=== PATIENT | male | born 1990 | race Caucasian/White ===

== ENCOUNTER 2019-07-10 15:40 | Outpatient (CLI) | payer OTHER, SELFPAY ==
[2019-07-10 15:55] LABS: Basophils Percent Auto 0.2 % (0.2-1.2); Eosinophils Absolute Auto 0.1 K/mm3 (0-0.3); Eosinophils Percent Auto 0.6 % (0-4.4); Hematocrit 50.3 % (42.0-52.0); Hemoglobin 16.9 g/dL (14.0-18.0); Immature Granulocyte Absolute 0.05 K/mm3 (0.00-0.031); Immature Granulocyte Percent A 0.3 % (0-0.5); Lymphocytes Absolute Auto 2.12 K/mm3 (0.9-3.2); Lymphocytes Percent Auto 12.9 % (18.3-44.2); Mean Corpuscular HGB Conc 33.6 g/dl (32-36); Mean Corpuscular Hemoglobin 32.1 pg (26-34); Mean Corpuscular Volume 95.6 fl (80-100); Mean Platelet Volume 9.2 fl (7.4-10.4); Monocytes Absolute Auto 1.2 K/mm3 (0.1-0.6); Monocytes Percent Auto 7.5 % (2.6-8.5); Neutrophils Absolute Auto 12.9 K/mm3 (1.3-6.7); Neutrophils Percent Auto 78.5 % (45.5-73.1); Platelet Count Result 536 k/mm3 (150-375); Red Blood Count 5.26 M/mm3 (4.6-6.20); Red Cell Distribution Width 13.3 % (11.5-14.5); White Blood Count 16.5 K/mm3 (4.5-10.0)
[2019-07-10 16:49] LABS: Iron 113 ug/dL (49-181)
[2019-07-10 16:51] LABS: Alanine Aminotransferase 29 U/L (4-50); Albumin Level 4.8 g/dL (3.5-5.1); Alkaline Phosphatase 86 U/L (38-126); Aspartate Amino Transferase 38 U/L (17-59); Bilirubin,Total 0.4 mg/dL (0.2-1.3); Blood Urea Nitrogen 14 mg/dL (9-20); Calcium 9.9 mg/dL (8.4-10.2); Carbon Dioxide 26 mmol/L (22-30); Chloride 97 mmol/L (98-107); Estimated Glomerular Filt Rate > 60; Glucose 95 mg/dL (75-110); Potassium 4.1 mmol/L (3.4-5.0); Sodium 142 mmol/L (137-145)
[2019-07-10 17:01] LABS: Percent Iron Saturation 36 % (20-50)
== END 2019-07-10 15:41 | disposition home or self-care (01) ==
LOC: ANHLAB 15:45
PROVIDERS: PCP Pediatrics; Visit Provider Internal Medicine Hematology & Oncology
DX: E83.110 Hereditary hemochromatosis (principal)
CPT/HCPCS: 36415; 80053; 82728; 83540; 83550; 85025

== ENCOUNTER 2019-11-14 14:22 | Outpatient (CLI) | payer OTHER, SELFPAY ==
[2019-11-14 14:34] LABS: Basophils Absolute Auto 0.02 K/mm3 (0.00-0.10); Basophils Percent Auto 0.2 % (0.0-1.0); Eosinophils Absolute Auto 0.24 K/mm3 (0.02-0.50); Eosinophils Percent Auto 2.6 % (1.0-6.0); Hematocrit 44.5 % (40.0-54.0); Hemoglobin 15.4 g/dL (14.0-18.0); Immature Granulocyte Absolute 0.03 K/mm3 (0.00-0.00); Immature Granulocyte Percent A 0.3 % (0.0-0.0); Lymphocytes Absolute Auto 1.99 K/mm3 (1.10-4.50); Lymphocytes Percent Auto 21.6 % (18.0-42.0); Mean Corpuscular HGB Conc 34.6 g/dL (32.0-36.0); Mean Corpuscular Hemoglobin 32.8 pg (27.0-31.0); Mean Corpuscular Volume 94.9 fL (78.0-102.0); Mean Platelet Volume 10.2 fl (8.7-11.0); Monocytes Absolute Auto 1.14 K/mm3 (0.10-0.90); Monocytes Percent Auto 12.4 % (2.0-11.0); Neutrophils Absolute Auto 5.8 K/mm3 (1.7-7.2); Neutrophils Percent Auto 62.9 % (50.0-70.0); Platelet Count Result 285 K/mm3 (150-420); Red Blood Count 4.69 M/mm3 (4.70-6.10); Red Cell Distribution Width 13.7 % (11.6-14.4); White Blood Count 9.2 K/mm3 (4.8-10.8)
[2019-11-14 15:27] LABS: Ferritin 342 ng/mL (26-388); Iron 163 ug/dL (65-175); Percent Iron Saturation 55 % (12-57)
== END 2019-11-14 14:23 | disposition home or self-care (01) ==
LOC: CHSLAB 14:26
PROVIDERS: PCP Family Medicine; Visit Provider Internal Medicine Hematology & Oncology
DX: E83.110 Hereditary hemochromatosis (principal)
CPT/HCPCS: 36415; 82728; 83540; 83550; 85025

== ENCOUNTER 2020-02-14 14:59 | Outpatient (CLI) | payer OTHER, SELFPAY ==
[2020-02-14 15:11] LABS: Basophils Absolute Auto 0.04 K/mm3 (0.00-0.10); Basophils Percent Auto 0.5 % (0.0-1.0); Eosinophils Percent Auto 2.3 % (1.0-6.0); Hematocrit 40.3 % (40.0-54.0); Hemoglobin 13.9 g/dL (14.0-18.0); Immature Granulocyte Absolute 0.04 K/mm3 (0.00-0.00); Immature Granulocyte Percent A 0.5 % (0.0-0.0); Immature Platelet Fraction Pct 1.3 % (1.0-7.0); Lymphocytes Absolute Auto 2.16 K/mm3 (1.10-4.50); Lymphocytes Percent Auto 24.7 % (18.0-42.0); Mean Corpuscular HGB Conc 34.5 g/dL (32.0-36.0); Mean Corpuscular Hemoglobin 32.6 pg (27.0-31.0); Mean Corpuscular Volume 94.4 fL (78.0-102.0); Monocytes Absolute Auto 1.29 K/mm3 (0.10-0.90); Monocytes Percent Auto 14.8 % (2.0-11.0); Neutrophils Percent Auto 57.2 % (50.0-70.0); Platelet Count Result 589 K/mm3 (150-420); Red Blood Count 4.27 M/mm3 (4.70-6.10); Red Cell Distribution Width 12.9 % (11.6-14.4); White Blood Count 8.7 K/mm3 (4.8-10.8)
[2020-02-14 16:02] LABS: Alanine Aminotransferase 30 U/L (16-63); Albumin Level 3.4 g/dL (3.4-5.0); Alkaline Phosphatase 62 U/L (46-116); Anion Gap 10 mmol/L (8-16); Aspartate Amino Transferase 18 U/L (15-37); Bilirubin,Total 0.1 mg/dL (0.00-1.00); Blood Urea Nitrogen 11 mg/dL (7-18); Calcium 9.2 mg/dL (8.5-10.1); Carbon Dioxide 29 mmol/L (21-32); Chloride 104 mmol/L (98-108); Estimated Glomerular Filt Rate > 60; Ferritin 475 ng/mL (26-388); Glucose 140 mg/dL (70-99); Iron 164 ug/dL (65-175); Osmolality Calculated 297 mOsm/kg (285-295); Percent Iron Saturation 64 % (12-57); Potassium 3.3 mmol/L (3.5-5.1); Sodium 143 mmol/L (136-145); Total Protein 6.7 g/dL (6.4-8.2)
== END 2020-02-14 15:00 | disposition home or self-care (01) ==
LOC: CHSLAB 15:02
PROVIDERS: PCP Family Medicine; Visit Provider Internal Medicine Hematology & Oncology
DX: E83.110 Hereditary hemochromatosis (principal)
CPT/HCPCS: 36415; 80053; 82728; 83540; 83550; 85025; 85055

== ENCOUNTER 2020-03-06 14:28 | Outpatient (CLI) | payer OTHER, SELFPAY ==
[2020-03-06 14:42] LABS: Basophils Absolute Auto 0.01 K/mm3 (0.00-0.10); Basophils Percent Auto 0.1 % (0.0-1.0); Eosinophils Absolute Auto 0.05 K/mm3 (0.02-0.50); Eosinophils Percent Auto 0.6 % (1.0-6.0); Hematocrit 46.9 % (40.0-54.0); Hemoglobin 15.8 g/dL (14.0-18.0); Immature Granulocyte Absolute 0.02 K/mm3 (0.00-0.00); Immature Granulocyte Percent A 0.2 % (0.0-0.0); Immature Platelet Fraction Pct 6.6 % (1.0-7.0); Lymphocytes Absolute Auto 1.65 K/mm3 (1.10-4.50); Lymphocytes Percent Auto 20.2 % (18.0-42.0); Mean Corpuscular HGB Conc 33.7 g/dL (32.0-36.0); Mean Corpuscular Hemoglobin 32.8 pg (27.0-31.0); Mean Corpuscular Volume 97.5 fL (78.0-102.0); Mean Platelet Volume 10.8 fl (8.7-11.0); Monocytes Absolute Auto 1.09 K/mm3 (0.10-0.90); Monocytes Percent Auto 13.3 % (2.0-11.0); Neutrophils Absolute Auto 5.4 K/mm3 (1.7-7.2); Neutrophils Percent Auto 65.6 % (50.0-70.0); Platelet Count Result 148 K/mm3 (150-420); Red Blood Count 4.81 M/mm3 (4.70-6.10); Red Cell Distribution Width 14.2 % (11.6-14.4); White Blood Count 8.2 K/mm3 (4.8-10.8)
[2020-03-06 15:42] LABS: Alanine Aminotransferase 36 U/L (16-63); Albumin Level 4.4 g/dL (3.4-5.0); Alkaline Phosphatase 87 U/L (46-116); Anion Gap 12 mmol/L (8-16); Aspartate Amino Transferase 30 U/L (15-37); Bilirubin,Total 1.1 mg/dL (0.00-1.00); Blood Urea Nitrogen 32 mg/dL (7-18); Calcium 9.5 mg/dL (8.5-10.1); Carbon Dioxide 30 mmol/L (21-32); Chloride 96 mmol/L (98-108); Estimated Glomerular Filt Rate > 60; Glucose 153 mg/dL (70-99); Osmolality Calculated 295 mOsm/kg (285-295); Potassium 3.1 mmol/L (3.5-5.1); Sodium 138 mmol/L (136-145); Total Protein 8.2 g/dL (6.4-8.2)
== END 2020-03-06 14:29 | disposition home or self-care (01) ==
LOC: CHSLAB 14:31
PROVIDERS: PCP Family Medicine; Visit Provider Nurse Practitioner Adult Health
DX: E83.110 Hereditary hemochromatosis (principal); E87.6 Hypokalemia
CPT/HCPCS: 36415; 80048; 80053; 85025; 85055

== ENCOUNTER 2020-03-26 14:40 | Outpatient (CLI) | payer OTHER, SELFPAY ==
[2020-03-26 14:51] LABS: Hematocrit 44.1 % (40.0-54.0); Hemoglobin 14.9 g/dL (14.0-18.0); Mean Corpuscular HGB Conc 33.8 g/dL (32.0-36.0); Mean Corpuscular Hemoglobin 33.3 pg (27.0-31.0); Mean Corpuscular Volume 98.7 fL (78.0-102.0); Mean Platelet Volume 9.1 fl (8.7-11.0); Platelet Count Result 433 K/mm3 (150-420); Red Blood Count 4.47 M/mm3 (4.70-6.10); Red Cell Distribution Width 14.6 % (11.6-14.4); White Blood Count 8.2 K/mm3 (4.8-10.8)
[2020-03-26 15:26] LABS: Alanine Aminotransferase 27 U/L (16-63); Alkaline Phosphatase 65 U/L (46-116); Anion Gap 9 mmol/L (8-16); Aspartate Amino Transferase 21 U/L (15-37); Bilirubin,Total 0.2 mg/dL (0.00-1.00); Blood Urea Nitrogen 9 mg/dL (7-18); Calcium 9.2 mg/dL (8.5-10.1); Carbon Dioxide 28 mmol/L (21-32); Chloride 104 mmol/L (98-108); Estimated Glomerular Filt Rate > 60; Glucose 117 mg/dL (70-99); Osmolality Calculated 291 mOsm/kg (285-295); Potassium 3.7 mmol/L (3.5-5.1); Sodium 141 mmol/L (136-145); Total Protein 7.7 g/dL (6.4-8.2)
== END 2020-03-26 14:41 | disposition home or self-care (01) ==
LOC: CHSLAB 14:42
PROVIDERS: PCP Family Medicine; Visit Provider Internal Medicine Hematology & Oncology
DX: E83.110 Hereditary hemochromatosis (principal)
CPT/HCPCS: 36415; 80053; 85027

== ENCOUNTER 2020-06-19 15:10 | Outpatient (CLI) | payer OTHER, SELFPAY ==
[2020-06-19 15:20] LABS: Basophils Absolute Auto 0.03 K/mm3 (0.00-0.10); Basophils Percent Auto 0.3 % (0.0-1.0); Hematocrit 46.7 % (40.0-54.0); Hemoglobin 16.2 g/dL (14.0-18.0); Immature Granulocyte Absolute 0.02 K/mm3 (0.00-0.00); Immature Granulocyte Percent A 0.2 % (0.0-0.0); Lymphocytes Absolute Auto 2.17 K/mm3 (1.10-4.50); Lymphocytes Percent Auto 21.9 % (18.0-42.0); Mean Corpuscular HGB Conc 34.7 g/dL (32.0-36.0); Mean Corpuscular Hemoglobin 33.2 pg (27.0-31.0); Mean Corpuscular Volume 95.7 fL (78.0-102.0); Mean Platelet Volume 9.5 fl (8.7-11.0); Monocytes Absolute Auto 1.11 K/mm3 (0.10-0.90); Monocytes Percent Auto 11.2 % (2.0-11.0); Neutrophils Absolute Auto 6.4 K/mm3 (1.7-7.2); Neutrophils Percent Auto 64.4 % (50.0-70.0); Platelet Count Result 270 K/mm3 (150-420); Red Blood Count 4.88 M/mm3 (4.70-6.10); Red Cell Distribution Width 12.6 % (11.6-14.4); White Blood Count 9.9 K/mm3 (4.8-10.8)
[2020-06-19 16:13] LABS: Alanine Aminotransferase 32 U/L (16-63); Albumin Level 4.4 g/dL (3.4-5.0); Alkaline Phosphatase 80 U/L (46-116); Anion Gap 12 mmol/L (8-16); Aspartate Amino Transferase 30 U/L (15-37); Bilirubin,Total 0.8 mg/dL (0.00-1.00); Blood Urea Nitrogen 17 mg/dL (7-18); Calcium 9.4 mg/dL (8.5-10.1); Carbon Dioxide 31 mmol/L (21-32); Chloride 96 mmol/L (98-108); Estimated Glomerular Filt Rate > 60; Ferritin 550 ng/mL (26-388); Glucose 103 mg/dL (70-99); Iron 114 ug/dL (65-175); Osmolality Calculated 289 mOsm/kg (285-295); Percent Iron Saturation 34 % (12-57); Potassium 3.5 mmol/L (3.5-5.1); Sodium 139 mmol/L (136-145); Total Protein 7.9 g/dL (6.4-8.2)
== END 2020-06-19 15:11 | disposition home or self-care (01) ==
LOC: CHSLAB 15:12
PROVIDERS: PCP Physician Assistant; Visit Provider Nurse Practitioner Adult Health
DX: E83.110 Hereditary hemochromatosis (principal)
CPT/HCPCS: 36415; 80053; 82728; 83540; 83550; 85025

== ENCOUNTER 2020-07-30 14:50 | Outpatient (CLI) | payer OTHER, SELFPAY ==
[2020-07-30 15:02] LABS: Basophils Absolute Auto 0.01 K/mm3 (0.00-0.10); Basophils Percent Auto 0.1 % (0.0-1.0); Eosinophils Absolute Auto 0.21 K/mm3 (0.02-0.50); Eosinophils Percent Auto 2.1 % (1.0-6.0); Hemoglobin 15.4 g/dL (14.0-18.0); Immature Granulocyte Absolute 0.04 K/mm3 (0.00-0.00); Immature Granulocyte Percent A 0.4 % (0.0-0.0); Lymphocytes Absolute Auto 2.45 K/mm3 (1.10-4.50); Lymphocytes Percent Auto 24.5 % (18.0-42.0); Mean Corpuscular HGB Conc 34.2 g/dL (32.0-36.0); Mean Corpuscular Hemoglobin 32.4 pg (27.0-31.0); Mean Corpuscular Volume 94.7 fL (78.0-102.0); Mean Platelet Volume 9.7 fl (8.7-11.0); Monocytes Absolute Auto 1.05 K/mm3 (0.10-0.90); Monocytes Percent Auto 10.5 % (2.0-11.0); Neutrophils Absolute Auto 6.3 K/mm3 (1.7-7.2); Neutrophils Percent Auto 62.4 % (50.0-70.0); Platelet Count Result 311 K/mm3 (150-420); Red Blood Count 4.75 M/mm3 (4.70-6.10); Red Cell Distribution Width 13.2 % (11.6-14.4)
[2020-07-30 16:11] LABS: Alanine Aminotransferase 52 U/L (16-63); Albumin Level 4.1 g/dL (3.4-5.0); Alkaline Phosphatase 64 U/L (46-116); Anion Gap 10 mmol/L (8-16); Aspartate Amino Transferase 25 U/L (15-37); Blood Urea Nitrogen 19 mg/dL (7-18); Calcium 9.3 mg/dL (8.5-10.1); Carbon Dioxide 29 mmol/L (21-32); Chloride 99 mmol/L (98-108); Estimated Glomerular Filt Rate > 60; Ferritin 471 ng/mL (26-388); Glucose 102 mg/dL (70-99); Iron 173 ug/dL (65-175); Osmolality Calculated 288 mOsm/kg (285-295); Percent Iron Saturation 64 % (12-57); Potassium 3.6 mmol/L (3.5-5.1); Sodium 138 mmol/L (136-145); Total Protein 7.4 g/dL (6.4-8.2)
== END 2020-07-30 14:51 | disposition home or self-care (01) ==
LOC: CHSLAB 14:53
PROVIDERS: PCP Physician Assistant; Visit Provider Internal Medicine Hematology & Oncology
DX: E83.110 Hereditary hemochromatosis (principal)
CPT/HCPCS: 36415; 80053; 82728; 83540; 83550; 85025

== ENCOUNTER 2020-08-29 14:36 | Outpatient (CLI) | payer OTHER, SELFPAY ==
[2020-08-29 14:47] LABS: Basophils Absolute Auto 0.03 K/mm3 (0.00-0.10); Basophils Percent Auto 0.4 % (0.0-1.0); Eosinophils Absolute Auto 0.13 K/mm3 (0.02-0.50); Eosinophils Percent Auto 1.7 % (1.0-6.0); Hematocrit 38.1 % (40.0-54.0); Hemoglobin 13.1 g/dL (14.0-18.0); Immature Granulocyte Absolute 0.03 K/mm3 (0.00-0.00); Immature Granulocyte Percent A 0.4 % (0.0-0.0); Immature Platelet Fraction Pct 1.2 % (1.0-7.0); Lymphocytes Absolute Auto 2.72 K/mm3 (1.10-4.50); Lymphocytes Percent Auto 36.1 % (18.0-42.0); Mean Corpuscular HGB Conc 34.4 g/dL (32.0-36.0); Mean Corpuscular Hemoglobin 32.4 pg (27.0-31.0); Mean Corpuscular Volume 94.3 fL (78.0-102.0); Mean Platelet Volume 8.8 fl (8.7-11.0); Monocytes Absolute Auto 1.01 K/mm3 (0.10-0.90); Monocytes Percent Auto 13.4 % (2.0-11.0); Neutrophils Absolute Auto 3.6 K/mm3 (1.7-7.2); Platelet Count Result 589 K/mm3 (150-420); Red Blood Count 4.04 M/mm3 (4.70-6.10); Red Cell Distribution Width 13.9 % (11.6-14.4); White Blood Count 7.5 K/mm3 (4.8-10.8)
[2020-08-29 16:23] LABS: Alanine Aminotransferase 25 U/L (16-63); Albumin Level 3.2 g/dL (3.4-5.0); Alkaline Phosphatase 56 U/L (46-116); Anion Gap 9 mmol/L (8-16); Aspartate Amino Transferase 20 U/L (15-37); Bilirubin,Total 0.1 mg/dL (0.00-1.00); Blood Urea Nitrogen 8 mg/dL (7-18); Calcium 8.3 mg/dL (8.5-10.1); Carbon Dioxide 32 mmol/L (21-32); Chloride 104 mmol/L (98-108); Estimated Glomerular Filt Rate > 60; Glucose 106 mg/dL (70-99); Osmolality Calculated 298 mOsm/kg (285-295); Potassium 3.4 mmol/L (3.5-5.1); Sodium 145 mmol/L (136-145); Total Protein 6.4 g/dL (6.4-8.2)
== END 2020-08-29 14:37 | disposition home or self-care (01) ==
LOC: CHSLAB 14:37
PROVIDERS: PCP Physician Assistant; Visit Provider Physician Assistant
DX: R11.2 Nausea with vomiting, unspecified (principal)
CPT/HCPCS: 36415; 80053; 85025; 85055

== ENCOUNTER 2020-09-07 10:00 | Outpatient (CLI) | payer OTHER, SELFPAY | END 2020-09-07 10:01 | disposition home or self-care (01) | LOC: CHSCOVIDVC 10:01 | PROVIDERS: PCP Physician Assistant | DX: Z23 Encounter for immunization (principal) | CPT/HCPCS: 0011A; 91301 ==

== ENCOUNTER 2020-10-05 10:00 | Outpatient (CLI) | payer OTHER, SELFPAY | END 2020-10-05 10:01 | disposition home or self-care (01) | LOC: CHSCOVIDVC 10:00 | PROVIDERS: PCP Physician Assistant | DX: Z23 Encounter for immunization (principal) | CPT/HCPCS: 0012A; 91301 ==

== ENCOUNTER 2020-12-05 12:49 | Outpatient (CLI) | payer OTHER, SELFPAY ==
--- NOTE | ~2020-12-05 | CT_ITS ---
EXAMINATION: CT sinus wo con DATE: 12/05/2020 13:11 INDICATION: Chronic sinusitis TECHNIQUE: Computed tomography (CT) of the paranasal sinuses was performed without intravenous contra st. The dose-length product was 304.88 mGy-cm. Automated exposure control and iterative reconstructio n technique were employed. He COMPARISON: None FINDINGS: There is mucosal thickening of the ethmoid, maxillary sinuses. Mastoids are pneumatized. No air-fluid levels. Leftward nasal septal deviation. The mastoids are pneumatized. Ostiomeatal units a re patent. IMPRESSION: 1. Mild sinusitis. Reviewed, dictated and finalized at location A. IMPRESSION: 1. Mild sinusitis.
== END 2020-12-05 12:50 | disposition home or self-care (01) ==
LOC: CHSIMG 12:54
PROVIDERS: PCP Physician Assistant; Visit Provider Otolaryngology
DX: J32.9 Chronic sinusitis, unspecified (principal)
CPT/HCPCS: 70486

== ENCOUNTER 2020-12-26 14:51 | Outpatient (CLI) | payer OTHER, SELFPAY ==
[2020-12-26 16:10] LABS: Alanine Aminotransferase 73 U/L (16-63); Albumin Level 3.8 g/dL (3.4-5.0); Alkaline Phosphatase 60 U/L (46-116); Anion Gap 14 mmol/L (8-16); Aspartate Amino Transferase 52 U/L (15-37); Bilirubin,Total 0.2 mg/dL (0.00-1.00); Blood Urea Nitrogen 8 mg/dL (7-18); Calcium 8.9 mg/dL (8.5-10.1); Carbon Dioxide 30 mmol/L (21-32); Chloride 104 mmol/L (98-108); Estimated Glomerular Filt Rate > 60; Glucose 96 mg/dL (70-99); Magnesium 1.5 mg/dL (1.8-2.4); Osmolality Calculated 304 mOsm/kg (285-295); Potassium 3.1 mmol/L (3.5-5.1); Sodium 148 mmol/L (136-145); Total Protein 7.2 g/dL (6.4-8.2)
== END 2020-12-26 14:52 | disposition home or self-care (01) ==
LOC: CHSLAB 14:53
PROVIDERS: PCP Physician Assistant; Visit Provider Physician Assistant
DX: R11.2 Nausea with vomiting, unspecified (principal)
CPT/HCPCS: 36415; 80053; 83735

== ENCOUNTER 2021-01-03 15:05 | Outpatient (CLI) | payer OTHER, SELFPAY ==
[2021-01-03 15:36] LABS: Alanine Aminotransferase 59 U/L (16-63); Albumin Level 3.8 g/dL (3.4-5.0); Alkaline Phosphatase 73 U/L (46-116); Anion Gap 13 mmol/L (8-16); Aspartate Amino Transferase 72 U/L (15-37); Bilirubin,Total 0.4 mg/dL (0.00-1.00); Blood Urea Nitrogen 11 mg/dL (7-18); Calcium 8.7 mg/dL (8.5-10.1); Carbon Dioxide 26 mmol/L (21-32); Chloride 102 mmol/L (98-108); Estimated Glomerular Filt Rate > 60; Glucose 156 mg/dL (70-99); Magnesium 1.8 mg/dL (1.8-2.4); Osmolality Calculated 294 mOsm/kg (285-295); Potassium 3.8 mmol/L (3.5-5.1); Sodium 141 mmol/L (136-145); Total Protein 8.3 g/dL (6.4-8.2)
== END 2021-01-03 15:06 | disposition home or self-care (01) ==
LOC: CHSLAB 15:08
PROVIDERS: PCP Physician Assistant; Visit Provider Physician Assistant
DX: R11.2 Nausea with vomiting, unspecified (principal)
CPT/HCPCS: 36415; 80053; 83735

== ENCOUNTER 2021-01-13 18:36 | Emergency (ER) | payer OTHER, SELFPAY ==
--- NOTE | 2021-01-13 19:34 | ED.GENADULT ---
HPI - General Adult General Chief complaint: Unspecified Stated complaint: Seeing and hearing things /shakey Source: patient and family History of Present Illness HPI narrative: this is a 30-year-old gentleman presents with alcohol abuse drinks about a pt of whiskey daily for the last 7 years, and presents with shaking and with visual and tactile hallucinations. Patient's vitals are stable blood pressure is stable there is no fever or chills no nausea vomiting no abdominal pain no back pain no dysuria no headaches no blurry vision. Onset (ago): day(s) Pain Consistency: constant Relieving factors: none Exacerbating factors: none Related Data Home Medications Medication Instructions Recorded Confirmed atenolol 100 mg PO DAILY 03/27/20 08/07/20 atorvastatin 20 mg PO DAILY 03/27/20 08/07/20 hydrochlorothiazide 25 mg PO DAILY 03/27/20 08/07/20 loratadine [Claritin] 10 mg PO DAILY 03/27/20 08/07/20 potassium 99 mg PO DAILY 03/27/20 08/07/20 Airborne Immune System 1 tab-cap PO DAILY 08/07/20 08/07/20 fluticasone propionate [Flonase] 1 spray INTRANASAL DAILY 08/07/20 08/07/20 Allergies Allergy/AdvReac Type Severity Reaction Status Date / Time Penicillins Allergy Unknown Vomiting Verified 08/07/20 14:26 Review of Systems Review of Systems: All systems reviewed & are unremarkable except as noted in HPI and below PMFSH Past Medical History Medical History Alcohol abuse Social History Social History Smoking packs per day: 0.5 Smoking cigarettes per day: 10.0 Smoking status: Current some day smoker Tobacco type: cigarettes Gender identity (if verbalized by the patient): Male Spiritual care concerns: No Exam Const: General: cooperative and healthy appearing HENMT: Head: normal to inspection General nose exam: Normal external nose present Face and sinus: normal facial exam, sinuses nontender and face symmetric Mouth: Yes Normal oral and palatal mucosa present Eyes: General: appearance normal, both eyes and all related structures Visual Leo: normal visual leo by confrontation Eyelids: eyelids normal Conjunctivae: conjunctivae normal EOM: EOMs intact bilaterally Neck: Neck: normal visual inspection, full ROM, no lymphadenopathy and no meningeal signs Chest: Chest palpation & inspection: normal inspection of the chest Resp: Effort & Inspection: normal respiratory effort Auscultation: clear to auscultation bilaterally Cardio: Jugular venous distension: no JVD Palpation: normal PMI Rate: regular rate Rhythm: regular rhythm GI: Inspection: normal to inspection Back/Spine/Pelvis: Back: no CVA tenderness Skin: General skin exam: normal color and no rashes or lesions noted Neuro: General: oriented to person, oriented to place, oriented to time, patient oriented x3 and gait normal Sensory Exam: other ( patient having some mild auditory and visual with tactile hallucinations) Psych: Appearance: other ( mild shaking of his hands mild tremor) Course Course Emergency Course: patient received a dose of Librium, patient's vital signs stable advised discharge with Librium and close follow-up with his primary care physician within the next 2 to 3 days for further evaluation and treatment. Critical Care Time Critical Care Time Critical Care Time: No Discharge Plan Discharge Clinical Impression: Alcohol abuse, Alcohol withdrawal delirium Patient Disposition: Home, Self-Care Condition: Stable Instructions: Antibiotic Form Prescriptions: New chlordiazepoxide HCl 10 mg capsule 10 mg PO TID PRN (Reason: agitation) Qty: 20 RF: 0 No Action atenolol 100 mg Tablet 100 mg PO DAILY RF: 0 atorvastatin 20 mg Tablet 20 mg PO DAILY RF: 0 potassium 99 mg Tablet 99 mg PO DAILY RF: 0 hydrochlorothiazide 25 mg Tablet 25 mg PO DAILY RF: 0 loratadine [Claritin] 10 mg Tablet 10 mg PO DAILY RF: 0 [place]
[2021-01-13 19:35] VITALS: BP 120/89; PULSE 89; RESP 20; TEMP 36.9; O2SAT 98
[2021-01-13 20:00] VITALS: PULSE 88; RESP 20; O2SAT 99
[2021-01-13] MEDS: chlordiazePOXIDE (*CRX) 25 MG CAPSULE PO (20:03)
== END 2021-01-13 20:03 | disposition home or self-care (01) ==
PROVIDERS: Emergency Provider Emergency Medicine; PCP Physician Assistant
DX: F10.10 Alcohol abuse, uncomplicated (principal); F10.131 Alcohol abuse with withdrawal delirium
CPT/HCPCS: 99283; A9270

== ENCOUNTER 2021-01-14 08:43 | Inpatient (IN) | payer OTHER, SELFPAY ==
[2021-01-14] VITALS (13 sets, daily range): BP systolic 101–153; BP diastolic 75–93; PULSE 50–94; RESP 12–18; TEMP 36.3–36.6; O2SAT 95–100; BMI 24.3
--- NOTE | ~2021-01-14 | CT_ITS ---
EXAMINATION: CT brain wo con EXAM DATE: 01/14/2021 11:03 INDICATION: Seizure. TECHNIQUE: Spiral CT of the head was performed without contrast. Axial, coronal and sagittal images were reviewed. The dose-length product (DLP) for this examination was 605.33 mGy-cm. The exposure w as tailored according to patient size, and iterative reconstruction (ASIR) was used as additional dos e reduction technique. There is no prior study for comparison. FINDINGS: There is no acute intraparenchymal hemorrhage. No evidence of intraparenchymal brain mass lesion. No evidence of acute infarction. There is no mass effect or midline shift. The ventricles are normal in size. There are no extra-axial collections. There are no acute calvarial fractures. T he orbits are unremarkable. Soft tissue is unremarkable. The visualized sinuses and mastoid air jose antonio ls are well aerated. IMPRESSION: 1. Unremarkable head CT examination. Reviewed, dictated and finalized at location A.
--- NOTE | 2021-01-14 10:42 | ED.GENADULT ---
HPI - General Adult General Chief complaint: Seizure Stated complaint: SEIZURE Time Seen by Provider: 01/14/21 09:06 Source: patient, family and EMS Mode of arrival: EMS Limitations: other (memory impairment) History of Present Illness HPI narrative: Patient presents for evaluation of seizure episode x2 this morning. Patient has poor recollection of recent events so his mother serves as primary historian. Mother indicates that patient went to [place] emergency department last evening around 1830 due to confusion, impulsivity, visual hallucinations. Mother found out at that time that patient has a history of heavy alcohol consumption, which she was unaware of prior to that time. Patient drinks a pint of whiskey daily and believes his last intake was on of last week. Patient states that he has drank heavily for many years. He states he no longer was able to afford the alcohol so he thought he would give being sober a try . He denies any illicit drug use. At [place] he was told that he was experiencing DT's and was given a script for librium. He was discharged from the ER and mother states she had planned to fill pt's script for him this morning. Unfortunately, he became more impulsive and confused through the night. Mother contacted [place] emergency department this morning around 0600. They informed him that there was not much that they could do at that time. Mother contacted EMS after patient had 2 seizure episodes this morning. Seizures lasted several minutes. During the first episode he did fall to the ground. He had tonic-clonic activity during seizures and was foaming at the mouth. He did not bite his tongue nor was he incontinent. He did hit his head multiple times against the floor. He is not on blood thinners. He does not provide me with much additional relevant history. Related Data Home Medications Medication Instructions Recorded Confirmed atenolol 100 mg PO DAILY 03/27/20 01/13/21 hydrochlorothiazide 25 mg PO DAILY 03/27/20 01/13/21 potassium 99 mg PO DAILY 03/27/20 01/13/21 fluticasone propionate [Flonase] 1 spray INTRANASAL DAILY 08/07/20 01/13/21 famotidine 40 mg PO DAILY 01/13/21 01/13/21 montelukast 10 mg PO DAILY 01/13/21 01/13/21 Allergies Allergy/AdvReac Type Severity Reaction Status Date / Time Penicillins Allergy Unknown Vomiting Verified 01/13/21 19:42 Review of Systems Review of Systems: CONSTITUTIONAL: Denies fever, chills, or sweats. EYES: Denies visual changes, redness, or discharge. ENT: Denies rhinorrhea, congestion, sore throat, or otalgia. CARDIOVASCULAR: Denies chest pain, palpitations, or edema. RESPIRATORY: Denies cough or dyspnea. GASTROINTESTINAL: Denies abdominal pain, nausea, vomiting, or diarrhea. GENITOURINARY: Denies dysuria or hematuria. SKIN: Denies rash or itching. MUSCULOSKELETAL: Denies back pain, joint pain, or myalgia. NEUROLOGIC: Reports recent seizure activity. Reports confusion. Denies headache, numbness, dizziness, or weakness. PSYCHIATRIC: Reports anxiety. PMFSH Past Medical History Medical History (Updated 01/14/21 @ 14:24 by Lucho Diaz, TUMBLER MACHINE OPERATOR, ) Alcohol abuse Hemochromatosis Surgical History Surgical History No pertinent past surgical history Family History Family History (Updated 01/14/21 @ 14:18 by SUSAN DuvallP, ) Mother No pertinent past medical history Social History Social History Smoking packs per day: 0.5 Smoking cigarettes per day: 10.0 Smoking status: Current some day smoker Tobacco type: cigarettes Gender identity (if verbalized by the patient): Male Spiritual care concerns: No Exam Narrative: GENERAL: Well-appearing, well-nourished, and in no acute distress. HEAD: Normocephalic, atraumatic. EYES: PERRLA and EOMI. ENT: Nares clear, no rhinorrhea or epistaxis. Mucous me
[2021-01-14 11:08] LABS: Basophils Percent Auto 0.1 % (0.2-1.2); Eosinophils Percent Auto 0.1 % (0-4.4); Hematocrit 43.8 % (42.0-52.0); Hemoglobin 15.4 g/dL (14.0-18.0); Immature Granulocyte Absolute 0.07 K/mm3 (0.00-0.031); Immature Granulocyte Percent A 0.6 % (0-0.5); Immature Platelet Fraction Pct 15.4 % (0.9-11.2); Lymphocytes Absolute Auto 1.14 K/mm3 (0.9-3.2); Lymphocytes Percent Auto 9.3 % (18.3-44.2); Mean Corpuscular HGB Conc 35.2 g/dl (32-36); Mean Corpuscular Hemoglobin 32.7 pg (26-34); Mean Platelet Volume 11.9 fl (7.4-10.4); Monocytes Absolute Auto 1.7 K/mm3 (0.1-0.6); Monocytes Percent Auto 13.8 % (2.6-8.5); Neutrophils Absolute Auto 9.4 K/mm3 (1.3-6.7); Neutrophils Percent Auto 76.1 % (45.5-73.1); Platelet Count Result 106 k/mm3 (150-375); Red Blood Count 4.71 M/mm3 (4.6-6.20); Red Cell Distribution Width 13.3 % (11.5-14.5); White Blood Count 12.3 K/mm3 (4.5-10.0)
[2021-01-14] MEDS: SODIUM CHLORIDE 0.9% IV 1,000 ML 999 ML IV CONT ×2 (11:19→14:09)
[2021-01-14] MEDS: FOLIC ACID 1 MG TABLET PO (11:20)
[2021-01-14] MEDS: THIAMINE HCL 100 MG TABLET PO (11:20)
[2021-01-14] MEDS: LORazepam INJ (*CRX) 2 MG/ML VIAL 1 MG IV PUSH (11:23)
[2021-01-14 11:48] LABS: Add Urine Microscopic? YES; Appearance Urine Clear (Clear); Bilirubin Urine Negative (Negative); Blood Urine Negative (Negative); Color Urine Yellow (Yellow); Glucose Urine UA Negative (Negative); Ketones Urine Trace mg/dL (Negative); Leukocyte Esterase Ur Negative LEU/UL (Negative); Mucus Urine Rare /lpf; Nitrate Urine Negative (Negative); Protein Urine 1+ mg/dL (Negative); RBC Urine 0-2 /hpf (0-2); Specific Grav Ur 1.024 (1.001-1.035); WBC Urine 0-3 /hpf
[2021-01-14 12:12] LABS: Partial Thromboplastin Time 24.2 SECONDS (22.3-36.8); Prothrombin Time 12.7 Seconds (11.1-14.7)
[2021-01-14 12:44] LABS: Troponin I < 0.012 ng/mL (0.000-0.034)
[2021-01-14 12:57] LABS: Alanine Aminotransferase 59 U/L (4-50); Albumin Level 4.8 g/dL (3.5-5.1); Alkaline Phosphatase 73 U/L (38-126); Anion Gap 14 mmol/L (8-16); Aspartate Amino Transferase 58 U/L (17-59); Bilirubin,Total 1.3 mg/dL (0.2-1.3); Blood Urea Nitrogen 53 mg/dL (9-20); Calcium 10.1 mg/dL (8.4-10.2); Carbon Dioxide 29 mmol/L (22-30); Chloride 91 mmol/L (98-107); Estimated CRCL calculation 64 ml/min; Estimated Glomerular Filt Rate 54; Glucose 103 mg/dL (65-110); Potassium 2.6 mmol/L (3.4-5.0); Sodium 134 mmol/L (137-145)
[2021-01-14 12:59] LABS: Amphetamine Screen Urine Negative (Negative); Barbiturate Screen Urine Negative (Negative); Benzodiazepines Screen Urine Positive (Negative); Cannabinoid Screen Urine Negative (Negative); Cocaine Screen Urine Negative (Negative); Methadone Screen Urine Negative (Negative); Opiate Screen Urine Negative (Negative); Phencyclidine Screen Urine Negative (Negative)
[2021-01-14] MEDS: LORazepam INJ (*CRX) 2 MG/ML VIAL IV PUSH (13:37)
[2021-01-14 14:02] LABS: Ethanol < 10 mg/dL (<10)
[2021-01-14] MEDS: LORazepam INJ (*CRX) 2 MG/ML VIAL (14:12)
[2021-01-14] MEDS: dexmedeTOMIDine 400 MCG/100 ML 400 MCG/100 ML BAG IV CONT (15:00)
--- NOTE | 2021-01-14 15:45 | PM.IMHP ---
H&P: HPI History of Present Illness Date/Time: 01/14/21 15:45 Chief Complaint: Seizure. Narrative: This is a 30-year-old male smoker with history of hypertension, hemochromatosis, GERD, and alcohol abuse who presented to the emergency department earlier today via EMS from home for evaluation after he had 2 seizures this morning. At the time of my evaluation the patient is sedated and cannot provide a history and as such all of the following is obtained via a review of his electronic medical records as well as discussions with his mother who is at bedside. The patient was seen in the emergency department at the [facility] on 01/13/2021 for evaluation of confusion, impulsivity, and visual and tactile hallucinations. At that time he admitted that he has been drinking a pint of whiskey a day for the last 7 years, unbeknownst to his family, and he decided that last he was going to stop drinking. He was given Librium and was discharged home sometime last evening. Unfortunately he continued to become increasingly confused and agitated and his mother called [place] ER early this morning around 06:00 for advice and was told that there was nothing that they could do for him. About 2 hours thereafter the patient had 2 witnessed seizures lasting several minutes each, and during the 1st seizure he fell to the ground and hit his head. In the emergency department he was given several doses of Ativan which have not controlled his symptoms and he has since been started on a Precedex drip. As mentioned above, he is difficult to arouse at this time but mother reports that he has been awake for at least 48 hours and she is glad to see him sleeping. Patient will open his eyes to sternal rub but will fall back asleep quickly and he provides no history. Review of Systems Review of Systems: A review of systems is unable to be obtained given the patient's current clinical condition as above. Mother denies that he has had any recent illnesses. There is no prior history of seizures. He has hemochromatosis and has therapeutic phlebotomy approximately 2 times year. She does not think he uses any other substances but was shocked to learn that he has been a daily drinker as they never saw any signs of it despite him living at home with his parents. [facility] Past Medical History Medical History (Updated 01/14/21 @ 22:00 by Pricila Walker PA-C) Alcohol abuse Gastroesophageal reflux disease Hemochromatosis Typically has therapeutic phlebotomy twice a year. Hypertension Surgical History Surgical History (Updated 01/14/21 @ 21:56 by Pricila Walker PA-C) History of tonsillectomy Family History Family History (Updated 01/14/21 @ 21:56 by Pricila Walker PA-C) Grandparent Pancreatic cancer Social History Social History (Updated 01/14/21 @ 21:57 by Pricila Walker PA-C) Social History: Surrogate decision maker: Dylon and Pranav Aman, parents. Code status: Full code. Smoking packs per day: 0.5 Smoking cigarettes per day: 10.0 Smoking status: Current every day smoker Tobacco type: cigarettes Alcohol intake: current Alcohol use details: One pint of whiskey a day for the past 7 years Substance use: unknown Additional living arrangements comments: The patient lives in [place] with his parents. 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 Meds Home Medications and Allergies Home Medications Medication Instructions Recorded Confirmed Type atenolol 100 mg PO DAILY 03/27/20 01/14/21 History hydrochlorothiazide 25 mg PO DAILY 03/27/20 01/14/21 History potassium See Rx Instructions .ROUTE .COMPLEX 03/27/20 01/14/21 History fluticasone propionate [Flonase] 2 spray INTRANASAL DAILY 08/07/20 01/14/21 History chlordiazepoxide HCl 10 mg PO TID PRN #20 cap 01/13/21 01/14/21 Rx famotidine 40 mg PO DAILY 01/13/21 01/14/21 History montelukast 10 mg PO DAILY
--- NOTE | 2021-01-14 16:48 | ADMGEN ---
This patient, Jonathan Newton, was admitted to Intensive Care Unit-11. Patient/family oriented to hospital policies and general routines including ID bracelet, bed and alarms, visiting hours, pain management, procedures, bathroom and other care routines, personal items, smoking policy, room service/diet, and visiting hours. Information on how to activate the Rapid Response Team has been discussed. Patient/Family are encouraged to report perceived risks to care and to ask questions if they do not understand what they are told or what they should do.
[2021-01-14] MEDS: SODIUM CHLORIDE 0.9% IV 1,000 ML 125 ML IV CONT (19:26)
[2021-01-14] MEDS: dexmedeTOMIDine 400 MCG/100 ML 400 MCG/100 ML BAG 5.33 MCG IV CONT (20:58)
[2021-01-15] VITALS (13 sets, daily range): BP systolic 131–179; BP diastolic 64–98; PULSE 41–68; RESP 12–17; TEMP 36.3–36.9; O2SAT 97–100
[2021-01-15 00:01] LABS: Folic Acid 18.5 ng/mL (2.76->20); Vitamin B12 > 1000.0 pg/mL (239-931)
[2021-01-15 02:45] LABS: Basophils Percent Auto 0.1 % (0.2-1.2); Eosinophils Absolute Auto 0.1 K/mm3 (0-0.3); Eosinophils Percent Auto 1.5 % (0-4.4); Hematocrit 39.9 % (42.0-52.0); Hemoglobin 13.5 g/dL (14.0-18.0); Immature Granulocyte Absolute 0.01 K/mm3 (0.00-0.031); Immature Granulocyte Percent A 0.1 % (0-0.5); Immature Platelet Fraction Pct 11.7 % (0.9-11.2); Lymphocytes Absolute Auto 2.14 K/mm3 (0.9-3.2); Lymphocytes Percent Auto 31.8 % (18.3-44.2); Mean Corpuscular HGB Conc 33.8 g/dl (32-36); Mean Corpuscular Hemoglobin 32.5 pg (26-34); Mean Corpuscular Volume 96.1 fl (80-100); Mean Platelet Volume 11.2 fl (7.4-10.4); Monocytes Absolute Auto 1.1 K/mm3 (0.1-0.6); Monocytes Percent Auto 15.6 % (2.6-8.5); Neutrophils Absolute Auto 3.4 K/mm3 (1.3-6.7); Neutrophils Percent Auto 50.9 % (45.5-73.1); Platelet Count Result 97 k/mm3 (150-375); Red Blood Count 4.15 M/mm3 (4.6-6.20); Red Cell Distribution Width 13.4 % (11.5-14.5); White Blood Count 6.7 K/mm3 (4.5-10.0)
[2021-01-15] MEDS: SODIUM CHLORIDE 0.9% IV 1,000 ML 125 ML IV CONT (04:03)
[2021-01-15 04:04] LABS: Bilirubin Indirect 0.9 mg/dL (0-1.1)
[2021-01-15 04:08] LABS: Creatine Kinase 80 U/L (55-170)
[2021-01-15 05:33] LABS: Alanine Aminotransferase 45 U/L (4-50); Albumin Level 3.6 g/dL (3.5-5.1); Alkaline Phosphatase 53 U/L (38-126); Anion Gap 9 mmol/L (8-16); Aspartate Amino Transferase 50 U/L (17-59); Bilirubin,Total 1.1 mg/dL (0.2-1.3); Blood Urea Nitrogen 34 mg/dL (9-20); Calcium 8.8 mg/dL (8.4-10.2); Carbon Dioxide 26 mmol/L (22-30); Chloride 100 mmol/L (98-107); Estimated CRCL calculation 91 ml/min; Estimated Glomerular Filt Rate > 60; Glucose 87 mg/dL (65-110); Potassium 3.3 mmol/L (3.4-5.0); Sodium 135 mmol/L (137-145)
--- NOTE | 2021-01-15 08:06 | PM.IMPN ---
Progress Note: A&P Assessment and Plan (1) Alcohol withdrawal: Qualifiers: Complication of substance-induced condition: with delirium Qualified Code(s): F10.231 - Alcohol dependence with withdrawal delirium Code(s): F10.239 - Alcohol dependence with withdrawal, unspecified Status: Acute Assessment and Plan: The patient reports drinking a pint of whiskey a day for the last 7 years (was drinking a 5th but decreased about 1 year ago). He quit drinking 5 to 6 days prior to admission. He was admitted to the ICU on a Precedex drip. Patient currently alert and oriented. Still tremulous but otherwise w/d symptoms appear to be well controlled. Contine thiamine and folate. Wean Precedex off and change to Librium. Appreciate pin drafter input. Discussed benefits of abstaining from alcohol. Start diet. (2) Alcohol withdrawal seizure: Code(s): F10.239 - Alcohol dependence with withdrawal, unspecified; R56.9 - Unspecified convulsions Status: Acute Assessment and Plan: Patient has 2 seizures prior to admisison felt related to alcohol withdrawal. CT brain showing no acute findings. Continue seizure precautions. Alcohol abstention is imperative. (3) Acute hypokalemia: Code(s): E87.6 - Hypokalemia Status: Acute Assessment and Plan: Potassium 2.6 on admission and this was replaced. Repeat potassium still low at 3.3. Mag level 2.0 now. Replace potassium again. (4) Hypertension: Code(s): I10 - Essential (primary) hypertension Status: Acute Assessment and Plan: Blood pressures were reviewed and they are elevated. Atenolol resumed but patient with bradycardia. HCTZ on hold. Elevated BP may be in response to the bradycardia as well. Can use low dose Norvasc and wean off Precedex (since this is probably causing the bradycardia). Hold atenolol (5) Acute kidney injury: Code(s): N17.9 - Acute kidney failure, unspecified Status: Acute Assessment and Plan: BUN 53 and Cr 1.5 on admission felt related to dehydration. He appeared dry on exam. Total CK normal. With IV fluids, renal function has improved. Will continue IV fluids for now. (6) Thrombocytopenia: Code(s): D69.6 - Thrombocytopenia, unspecified Status: Acute Assessment and Plan: LFTs normal. Plt count low likely due to toxic effects of the alcohol and/or underlying liver disease. Monitor. (7) Hemochromatosis: Code(s): E83.119 - Hemochromatosis, unspecified Status: Acute Assessment and Plan: Patient has hx of hemochromatosis requiring periodic phlebotomy. Hgb 13.5 today. Follow. (8) Alcohol abuse: Code(s): F10.10 - Alcohol abuse, uncomplicated Status: Acute Assessment and Plan: Patietn has long hx of alcoholism. Patient was educated about the benefits abstain from alcohol use. Continue thiamine and folate. Social Work to provide information regarding alcohol rehab. (9) Bradycardia: Code(s): R00.1 - Bradycardia, unspecified Status: Acute Assessment and Plan: Patient with mild bradycardia. Probably related to Precedex. Hold atenolol. Wean Precedex off. (10) DVT prophylaxis: Code(s): Z29.9 - Encounter for prophylactic measures, unspecified Status: Acute Assessment and Plan: SCDs Subjective Date/time seen: 01/15/21 08:06 Interval history: 30yo male with hemochromatosis and alcohol abuse here for alcohol withdrawal with withdrawal seizures. Patient has been drinking a pint of whiskey per day for many years. Patient ' feels rested' today. He denies SOB or CP. No headache. No abd pain. No n/v - feels hungry. He has not eaten for 2 days. He has little memory of the events. He states he stopped drinking because he felt tired of feeling groggy in the morning and that he ran out of money. He is unemployed Exam Narrative: AF 97.3 179/95 57 14 100% ra
[2021-01-15] MEDS: PANTOPRAZOLE SODIUM IV 40 MG VIAL IV PUSH (08:16)
[2021-01-15] MEDS: FLUTICASONE PROPIONATE 0.05% NA SPR 16 GM BTL (*BKC) 2 SPRAY NASAL (08:16)
[2021-01-15] MEDS: MONTELUKAST SODIUM 10 MG TABLET PO (08:17)
[2021-01-15] MEDS: FOLIC ACID 1 MG TABLET PO (08:17)
[2021-01-15] MEDS: THIAMINE HCL 100 MG TABLET PO (08:17)
[2021-01-15] MEDS: POTASSIUM CHLORIDE 20 MEQ TABLET 40 MEQ PO (10:49)
[2021-01-15] MEDS: chlordiazePOXIDE (*CRX) 25 MG CAPSULE PO ×4 (10:49→19:57)
[2021-01-15] MEDS: amLODIPine BESYLATE 2.5 MG TABLET PO (10:50)
--- NOTE | 2021-01-15 12:32 | WPDCNINT ---
Assessment and Plan Assessment and plan (1) Alcohol withdrawal: Qualifiers: Complication of substance-induced condition: with delirium Qualified Code(s): F10.231 - Alcohol dependence with withdrawal delirium Code(s): F10.239 - Alcohol dependence with withdrawal, unspecified Status: Acute Assessment and Plan: Patient has history of alcohol abuse, drinks pint of whiskey per day, also see sometimes drinks a pint of vodka with beer. He quit drinking on 01/09/2021 and was admitted through the ER for alcohol seizures. Patient was given multiple doses of Ativan in the ER and started on Precedex infusion and transferred to the ICU for further management. -patient continues to have visual hallucinations and tremulous. -Precedex infusion for now, will start Librium and hopefully wean Precedex to off. -continue thiamine and folic acid -discussed patient regarding cessation of alcohol use, wants to quit drinking, the vast care coordination to help him with providing him with information on rehab programs close to his house. (2) Alcohol withdrawal seizure: Code(s): F10.239 - Alcohol dependence with withdrawal, unspecified; R56.9 - Unspecified convulsions Status: Acute Assessment and Plan: al seizures x2 prior to admission at home prior to arrival in the ER. Likely related to alcohol withdrawal. CT head did not show any acute intracranial abnormalities. -no seizures have been noted since patient is in the ICU, continue seizure precautions (3) Acute kidney injury: Code(s): N17.9 - Acute kidney failure, unspecified Status: Acute Assessment and Plan: Acute kidney injury likely related to hypovolemia, patient has been adequately fluid-resuscitated -creatinine is down to normal, urine output has been adequate, continue to monitor (4) Acute hypokalemia: Code(s): E87.6 - Hypokalemia Status: Acute Assessment and Plan: Replace potassium (5) Thrombocytopenia: Code(s): D69.6 - Thrombocytopenia, unspecified Status: Acute Assessment and Plan: Thrombocytopenia likely related to toxic effects of alcohol and or underlying liver disease. Continue to monitor (6) Bradycardia: Code(s): R00.1 - Bradycardia, unspecified Status: Acute Assessment and Plan: Likely related to Precedex, hold home atenolol, Continue to monitor closely Additional Plan Discussed with patient updated with his condition and plan of care. I answered all questions Code status: Full code Critical care time spent: 41 minutes This dictation may have been done utilizing a voice recognition system. Attempts have been made to correct errors. However, there may be uncorrected grammatical, spelling, and recognition errors present. Due to a high probability of clinically significant, life threatening deterioration, the patient required my highest level of preparedness to intervene emergently and I personally spent this critical care time directly and personally managing the patient. This critical care time included obtaining a history; examining the patient; pulse oximetry; ordering and review of studies; arranging urgent treatment with development of a management plan; evaluation of patient's response to treatment; frequent reassessment; and discussions with other providers. It was exclusive of separately billable procedures and treating other patients and teaching time. 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 According
[2021-01-15] MEDS: chlordiazePOXIDE (*CRX) 25 MG CAPSULE 50 MG PO (23:36)
[2021-01-16] VITALS (10 sets, daily range): BP systolic 150–158; BP diastolic 83–101; PULSE 58–90; RESP 15–19; TEMP 36.1–37; O2SAT 98–100
--- NOTE | 2021-01-16 03:48 | PC.NURSE ---
This patient, Jonathan Newton, was transferred to [facility] on 01/16/21 at 0315. Personal belongings sent with patient. Report given to CABRERA Easley. Appropriate documentation sent with patient.
[2021-01-16] MEDS: chlordiazePOXIDE (*CRX) 25 MG CAPSULE 50 MG PO ×2 (05:18→12:04)
[2021-01-16 06:21] LABS: Basophils Percent Auto 0.1 % (0.2-1.2); Eosinophils Absolute Auto 0.1 K/mm3 (0-0.3); Eosinophils Percent Auto 1.7 % (0-4.4); Hematocrit 39.2 % (42.0-52.0); Hemoglobin 13.6 g/dL (14.0-18.0); Immature Granulocyte Absolute 0.02 K/mm3 (0.00-0.031); Immature Granulocyte Percent A 0.3 % (0-0.5); Immature Platelet Fraction Pct 9.8 % (0.9-11.2); Lymphocytes Percent Auto 20.4 % (18.3-44.2); Mean Corpuscular HGB Conc 34.7 g/dl (32-36); Mean Corpuscular Hemoglobin 32.9 pg (26-34); Mean Corpuscular Volume 94.9 fl (80-100); Mean Platelet Volume 10.5 fl (7.4-10.4); Monocytes Absolute Auto 1.6 K/mm3 (0.1-0.6); Monocytes Percent Auto 20.8 % (2.6-8.5); Neutrophils Absolute Auto 4.4 K/mm3 (1.3-6.7); Neutrophils Percent Auto 56.7 % (45.5-73.1); Platelet Count Result 137 k/mm3 (150-375); Red Blood Count 4.13 M/mm3 (4.6-6.20); Red Cell Distribution Width 13.2 % (11.5-14.5); White Blood Count 7.8 K/mm3 (4.5-10.0)
[2021-01-16 06:53] LABS: Alanine Aminotransferase 39 U/L (4-50); Albumin Level 3.6 g/dL (3.5-5.1); Alkaline Phosphatase 53 U/L (38-126); Anion Gap 8 mmol/L (8-16); Aspartate Amino Transferase 39 U/L (17-59); Bilirubin,Total 0.8 mg/dL (0.2-1.3); Blood Urea Nitrogen 19 mg/dL (9-20); Carbon Dioxide 26 mmol/L (22-30); Chloride 101 mmol/L (98-107); Estimated CRCL calculation 98 ml/min; Estimated Glomerular Filt Rate > 60; Glucose 95 mg/dL (65-110); Lipase 161 U/L (23-300); Magnesium 1.5 mg/dL (1.6-2.3); Phosphorus 3.1 mg/dL (2.5-4.5); Sodium 135 mmol/L (137-145)
[2021-01-16] MEDS: POTASSIUM CHLORIDE 20 MEQ TABLET 40 MEQ PO (08:04)
[2021-01-16] MEDS: FOLIC ACID 1 MG TABLET PO (08:04)
[2021-01-16] MEDS: MONTELUKAST SODIUM 10 MG TABLET PO (08:04)
[2021-01-16] MEDS: THIAMINE HCL 100 MG TABLET PO (08:05)
[2021-01-16] MEDS: FLUTICASONE PROPIONATE 0.05% NA SPR 16 GM BTL (*BKC) 2 SPRAY NASAL (08:05)
[2021-01-16] MEDS: PANTOPRAZOLE SODIUM IV 40 MG VIAL IV PUSH (08:05)
[2021-01-16] MEDS: amLODIPine BESYLATE 5 MG TABLET PO (12:02)
[2021-01-16] MEDS: MAGNESIUM OXIDE 400 MG TABLET PO (12:02)
--- NOTE | 2021-01-16 13:37 | PM.IMPN ---
Progress Note: A&P Assessment and Plan (1) Alcohol withdrawal: Qualifiers: Complication of substance-induced condition: with delirium Qualified Code(s): F10.231 - Alcohol dependence with withdrawal delirium Code(s): F10.239 - Alcohol dependence with withdrawal, unspecified Status: Acute Assessment and Plan: The patient reports drinking a pint of whiskey a day for the last 7 years (was drinking a 5th but decreased about 1 year ago). He quit drinking 5 to 6 days prior to admission. He was admitted to the ICU on a Precedex drip. Patient stabilized and became alert and oriented. Librium added and advanced. Able to wean off Precedex successfully; patient still tremulous but otherwise w/d symptoms appear to be well controlled. Continue thiamine and folate. Wean Librium as tolerated (2) Alcohol withdrawal seizure: Code(s): F10.239 - Alcohol dependence with withdrawal, unspecified; R56.9 - Unspecified convulsions Status: Acute Assessment and Plan: Patient has 2 seizures prior to admisison felt related to alcohol withdrawal. CT brain showing no acute findings. Continue seizure precautions. Alcohol abstention is imperative. (3) Acute hypokalemia: Code(s): E87.6 - Hypokalemia Status: Acute Assessment and Plan: Potassium 2.6 on admission and this was replaced. Repeat potassium still low at 3.0. Mag level 1.5 now. Replace potassium and Mag. (4) Hypertension: Code(s): I10 - Essential (primary) hypertension Status: Acute Assessment and Plan: Blood pressures were reviewed and they are elevated still. Atenolol resumed but patient with bradycardia so this was held. HCTZ was also held due to the KARTIK. Elevated BP may be in response to the bradycardia as well. Norvasc started and advanced. (5) Acute kidney injury: Code(s): N17.9 - Acute kidney failure, unspecified Status: Acute Assessment and Plan: BUN 53 and Cr 1.5 on admission felt related to dehydration. He appeared dry on exam. Total CK was normal. With IV fluids, renal function normalized. (6) Thrombocytopenia: Code(s): D69.6 - Thrombocytopenia, unspecified Status: Acute Assessment and Plan: LFTs normal. Plt count low likely due to toxic effects of the alcohol and/or underlying liver disease. Platelet count better. (7) Hemochromatosis: Code(s): E83.119 - Hemochromatosis, unspecified Status: Acute Assessment and Plan: Patient has hx of hemochromatosis requiring periodic phlebotomy. LFTs normal. Hgb 13 range. (8) Alcohol abuse: Code(s): F10.10 - Alcohol abuse, uncomplicated Status: Acute Assessment and Plan: Patient has long hx of alcoholism. Patient was educated about the benefits of abstaining from alcohol use. We started thiamine and folate. Social Work provided information regarding alcohol rehab. (9) Bradycardia: Code(s): R00.1 - Bradycardia, unspecified Status: Acute Assessment and Plan: Patient had mild bradycardia felt related to Precedex. Atenolol was held. Precedex was weaned off and bradycardia resolved (10) DVT prophylaxis: Code(s): Z29.9 - Encounter for prophylactic measures, unspecified Status: Acute Assessment and Plan: SCDs Subjective Date/time seen: 01/16/21 13:37 Interval history: 30yo male with hemochromatosis and alcohol abuse here for alcohol withdrawal with withdrawal seizures. Patient has been drinking a pint of whiskey per day for many years. No issues overnight. Feels better. Denies to me that he is having hallucinations but told the RN that there was a small boy in the bathroom. Patient has a slight cough of whitish sputum which is chronic for him related to allergies. No diaphoresis but still has tremors. No chest pain or shortness of breath. Up walking in the halls. No nausea or vomiting. Eating well. Exam
[2021-01-16] MEDS: atenoloL 50 MG TABLET PO (15:12)
[2021-01-16] MEDS: chlordiazePOXIDE (*CRX) 25 MG CAPSULE PO (17:32)
[2021-01-17] VITALS: BP 150/98; PULSE 62
[2021-01-17 03:37] VITALS: BP 150/98; PULSE 62
[2021-01-17 04:59] VITALS: BP 149/86; PULSE 67; RESP 16; TEMP 36.4; O2SAT 100
[2021-01-17] MEDS: chlordiazePOXIDE (*CRX) 25 MG CAPSULE PO (05:10)
[2021-01-17 06:25] LABS: Anion Gap 9 mmol/L (8-16); Blood Urea Nitrogen 14 mg/dL (9-20); Calcium 9.2 mg/dL (8.4-10.2); Carbon Dioxide 26 mmol/L (22-30); Chloride 102 mmol/L (98-107); Estimated CRCL calculation 108 ml/min; Estimated Glomerular Filt Rate > 60; Glucose 98 mg/dL (65-110); Magnesium 1.4 mg/dL (1.6-2.3); Potassium 3.3 mmol/L (3.4-5.0); Sodium 137 mmol/L (137-145)
[2021-01-17 08:00] VITALS: PULSE 64
[2021-01-17] MEDS: POTASSIUM CHLORIDE 20 MEQ TABLET 40 MEQ PO (08:25)
[2021-01-17] MEDS: atenoloL 50 MG TABLET 100 MG PO (08:25)
[2021-01-17] MEDS: amLODIPine BESYLATE 5 MG TABLET PO (08:25)
[2021-01-17] MEDS: FOLIC ACID 1 MG TABLET PO (08:26)
[2021-01-17] MEDS: FLUTICASONE PROPIONATE 0.05% NA SPR 16 GM BTL (*BKC) 2 SPRAY NASAL (08:26)
[2021-01-17] MEDS: THIAMINE HCL 100 MG TABLET PO (08:27)
[2021-01-17] MEDS: MAGNESIUM OXIDE 400 MG TABLET PO (08:27)
[2021-01-17] MEDS: PANTOPRAZOLE 40 MG TABLET PO (08:27)
[2021-01-17] MEDS: MONTELUKAST SODIUM 10 MG TABLET PO (08:27)
--- NOTE | 2021-01-17 09:44 | PM.DS ---
DS: Admitting Diagnosis Discharge Date 01/17/2021 Admitting Diagnosis Seizure DS: Discharge Diagnosis Discharge Diagnosis (1) Alcohol withdrawal: Qualifiers: Complication of substance-induced condition: with delirium Qualified Code(s): F10.231 - Alcohol dependence with withdrawal delirium Code(s): F10.239 - Alcohol dependence with withdrawal, unspecified Status: Acute Assessment and Plan: The patient reports drinking a pint of whiskey a day for the last 7 years (was drinking a 5th but decreased about 1 year ago). He quit drinking 5 to 6 days prior to admission. He developed withdrawal symptoms with withdrawal seizures. He was admitted to the ICU on a Precedex drip. Patient stabilized and became alert and oriented. Librium was added and advanced. Able to wean off Precedex successfully. Withdrawal symptoms were well controlled. He was also treated with thiamine and folate. Able to wean Librium successfully without return of symptoms (2) Alcohol withdrawal seizure: Code(s): F10.239 - Alcohol dependence with withdrawal, unspecified; R56.9 - Unspecified convulsions Status: Acute Assessment and Plan: Patient has 2 seizures prior to admisison felt related to alcohol withdrawal. CT brain showing no acute findings. Seizure precautions initiated. Alcohol abstention is imperative. (3) Acute hypokalemia: Code(s): E87.6 - Hypokalemia Status: Acute Assessment and Plan: Potassium and Mag were low at times and these were replaced. (4) Hypertension: Code(s): I10 - Essential (primary) hypertension Status: Acute Assessment and Plan: Blood pressures were monitored closely and they are elevated at times. Atenolol held initially due to bradycardia from the Precedex. HCTZ was also held due to the KARTIK. We started Norvasc. Atenolol was resumed once off the Precedex and HR improved. BP became better controlled (5) Acute kidney injury: Code(s): N17.9 - Acute kidney failure, unspecified Status: Acute Assessment and Plan: BUN 53 and Cr 1.5 on admission felt related to dehydration. He appeared dry on exam. Total CK was normal. With IV fluids, renal function normalized. (6) Thrombocytopenia: Code(s): D69.6 - Thrombocytopenia, unspecified Status: Acute Assessment and Plan: LFTs normal. Plt count low likely due to toxic effects of the alcohol and/or underlying liver disease. Platelet count improved. (7) Hemochromatosis: Code(s): E83.119 - Hemochromatosis, unspecified Status: Acute Assessment and Plan: Patient has hx of hemochromatosis requiring periodic phlebotomy. LFTs normal. Hgb 13 range. (8) Alcohol abuse: Code(s): F10.10 - Alcohol abuse, uncomplicated Status: Acute Assessment and Plan: Patient has long hx of alcoholism. Patient was educated about the benefits of abstaining from alcohol use. We started thiamine and folate. Social Work provided information regarding alcohol rehab. (9) Bradycardia: Code(s): R00.1 - Bradycardia, unspecified Status: Acute Assessment and Plan: Patient had mild bradycardia felt related to Precedex. Atenolol was held. Precedex was weaned off and bradycardia resolved. DS: Summary Hospital Course Reason for hospitalization: 30yo male with hemochromatosis and alcohol abuse here for alcohol withdrawal with withdrawal seizures. Patient has been drinking a pint of whiskey per day for many years. Please see H&P for details Hospital Course: Please see above for details of hospital course Status at Discharge Cognitive/behavioral status at discharge: stable Time Spent with Patient Time attestation: Total time spent providing and/or coordinating discharge services: 34 minutes Time spent: Greater than 30 minutes Specific discharge activities: patient Education Exam Narrative: No issue
== END 2021-01-17 12:09 | disposition home or self-care (01) | DRG 775 ==
LOC: ANHED 14:24 → ANHICU 16:25 → ANH3MED 01-17 09:54 → ANHICU 01-20 13:21
PROVIDERS: Emergency Medicine; Internal Medicine; Physician Assistant; Admitting Provider Internal Medicine; Emergency Provider Nurse Practitioner; PCP Physician Assistant; Visit Provider Internal Medicine
DX: F10.231 Alcohol dependence with withdrawal delirium (principal); I10 Essential (primary) hypertension; E83.119 Hemochromatosis, unspecified; K21.9 Gastro-esophageal reflux disease without esophagitis; F17.210 Nicotine dependence, cigarettes, uncomplicated; F10.239 Alcohol dependence with withdrawal, unspecified; R56.9 Unspecified convulsions; E87.6 Hypokalemia; N17.9 Acute kidney failure, unspecified; D69.6 Thrombocytopenia, unspecified; R00.1 Bradycardia, unspecified; Z79.899 Other long term (current) drug therapy; Z88.0 Allergy status to penicillin
CPT/HCPCS: 36415; 70450; 80048; 80053; 80307; 81001; 82248; 82550; 82607; 82746; 83690; 83735; 84100; 84443; 84484; 85025; 85055; 85610; 85730; 96361; 96374; 96376; 99285; A9270; C9113; J2060; J3480; J7030

== ENCOUNTER 2021-01-28 14:41 | Outpatient (CLI) | payer OTHER, SELFPAY ==
[2021-01-28 14:59] LABS: Basophils Absolute Auto 0.05 K/mm3 (0.00-0.10); Basophils Percent Auto 0.4 % (0.0-1.0); Eosinophils Absolute Auto 0.33 K/mm3 (0.02-0.50); Eosinophils Percent Auto 2.8 % (1.0-6.0); Hematocrit 40.1 % (40.0-54.0); Hemoglobin 13.3 g/dL (14.0-18.0); Immature Granulocyte Absolute 0.05 K/mm3 (0.00-0.00); Immature Granulocyte Percent A 0.4 % (0.0-0.0); Immature Platelet Fraction Pct 1.7 % (1.0-7.0); Lymphocytes Absolute Auto 2.41 K/mm3 (1.10-4.50); Lymphocytes Percent Auto 20.2 % (18.0-42.0); Mean Corpuscular HGB Conc 33.2 g/dL (32.0-36.0); Mean Corpuscular Hemoglobin 32.5 pg (27.0-31.0); Mean Platelet Volume 9.3 fl (8.7-11.0); Monocytes Absolute Auto 1.15 K/mm3 (0.10-0.90); Monocytes Percent Auto 9.6 % (2.0-11.0); Neutrophils Percent Auto 66.6 % (50.0-70.0); Platelet Count Result 732 K/mm3 (150-420); Red Blood Count 4.09 M/mm3 (4.70-6.10); Red Cell Distribution Width 14.5 % (11.6-14.4); White Blood Count 11.9 K/mm3 (4.8-10.8)
[2021-01-28 16:08] LABS: Alanine Aminotransferase 24 U/L (16-63); Albumin Level 3.3 g/dL (3.4-5.0); Alkaline Phosphatase 51 U/L (46-116); Anion Gap 8 mmol/L (8-16); Aspartate Amino Transferase 15 U/L (15-37); Bilirubin,Total 0.3 mg/dL (0.00-1.00); Blood Urea Nitrogen 9 mg/dL (7-18); Calcium 9.3 mg/dL (8.5-10.1); Carbon Dioxide 30 mmol/L (21-32); Chloride 106 mmol/L (98-108); Estimated Glomerular Filt Rate > 60; Ferritin 217 ng/mL (26-388); Glucose 93 mg/dL (70-99); Iron 90 ug/dL (65-175); Osmolality Calculated 296 mOsm/kg (285-295); Percent Iron Saturation 34 % (12-57); Potassium 4.6 mmol/L (3.5-5.1); Sodium 144 mmol/L (136-145); Total Protein 6.5 g/dL (6.4-8.2)
== END 2021-01-28 14:42 | disposition home or self-care (01) ==
LOC: CHSLAB 14:44
PROVIDERS: PCP Physician Assistant; Visit Provider Internal Medicine Hematology & Oncology
DX: E83.110 Hereditary hemochromatosis (principal)
CPT/HCPCS: 36415; 80053; 82728; 83540; 83550; 85025; 85055; 85060

== ENCOUNTER 2021-05-14 11:52 | Outpatient (CLI) | payer OTHER, SELFPAY ==
[2021-05-14 12:17] LABS: Basophils Absolute Auto 0.02 K/mm3 (0.00-0.10); Basophils Percent Auto 0.2 % (0.0-1.0); Eosinophils Absolute Auto 0.18 K/mm3 (0.02-0.50); Eosinophils Percent Auto 1.9 % (1.0-6.0); Hematocrit 44.9 % (40.0-54.0); Hemoglobin 15.2 g/dL (14.0-18.0); Immature Granulocyte Absolute 0.03 K/mm3 (0.00-0.00); Immature Granulocyte Percent A 0.3 % (0.0-0.0); Lymphocytes Absolute Auto 2.64 K/mm3 (1.10-4.50); Lymphocytes Percent Auto 27.5 % (18.0-42.0); Mean Corpuscular HGB Conc 33.9 g/dL (32.0-36.0); Mean Corpuscular Hemoglobin 30.9 pg (27.0-31.0); Mean Corpuscular Volume 91.3 fL (78.0-102.0); Mean Platelet Volume 9.9 fl (8.7-11.0); Monocytes Absolute Auto 1.14 K/mm3 (0.10-0.90); Monocytes Percent Auto 11.9 % (2.0-11.0); Neutrophils Absolute Auto 5.6 K/mm3 (1.7-7.2); Neutrophils Percent Auto 58.2 % (50.0-70.0); Platelet Count Result 445 K/mm3 (150-420); Red Blood Count 4.92 M/mm3 (4.70-6.10); Red Cell Distribution Width 12.6 % (11.6-14.4); White Blood Count 9.6 K/mm3 (4.8-10.8)
[2021-05-14 13:35] LABS: Alanine Aminotransferase 15 U/L (16-63); Albumin Level 3.7 g/dL (3.4-5.0); Alkaline Phosphatase 52 U/L (46-116); Anion Gap 10 mmol/L (8-16); Aspartate Amino Transferase 11 U/L (15-37); Bilirubin,Total 0.3 mg/dL (0.00-1.00); Blood Urea Nitrogen 16 mg/dL (7-18); Carbon Dioxide 27 mmol/L (21-32); Chloride 105 mmol/L (98-108); Estimated Glomerular Filt Rate > 60; Ferritin 44 ng/mL (26-388); Glucose 105 mg/dL (70-99); Iron 102 ug/dL (65-175); Osmolality Calculated 295 mOsm/kg (285-295); Percent Iron Saturation 33 % (12-57); Potassium 4.4 mmol/L (3.5-5.1); Sodium 142 mmol/L (136-145); Total Protein 6.8 g/dL (6.4-8.2)
== END 2021-05-14 11:53 | disposition home or self-care (01) ==
LOC: CHSLAB 11:56
PROVIDERS: PCP Physician Assistant; Visit Provider Internal Medicine Hematology & Oncology
DX: E83.110 Hereditary hemochromatosis (principal)
CPT/HCPCS: 36415; 80053; 82728; 83540; 83550; 85025

== ENCOUNTER 2023-08-20 15:16 | Emergency (ER) | payer OTHER, SELFPAY ==
--- NOTE | ~2023-08-20 | XR_ITS ---
XR hand LT min 3V DATE: 08/20/2023 15:32 INDICATION: Table saw injury to left third and fourth digits TECHNIQUE: 3 views of left hand COMPARISON: None FINDINGS: There is a comminuted fracture of the middle phalanx of the third digit, beginning in the p roximal shaft and extending through the articular surface at the distal interphalangeal joint, with s playing of the fracture fragments distally resulting in complete disruption of the distal articular s urface. There appears to be minimal if any involvement at the distal phalanx. However, dedicated third digit 4 view radiographic examination would be helpful for more detailed ari luation. No other fracture or dislocation is detected. IMPRESSION: Comminuted displaced fracture of the middle phalanx with complete disruption of the dista l articular surface of the middle phalanx Reviewed, dictated and finalized at location A. IMPRESSION: Comminuted displaced fracture of the middle phalanx with complete d isruption of the distal articular surface of the middle phalanx
[2023-08-20 15:19] VITALS: BP 89/51; PULSE 86; RESP 20; TEMP 36.6; O2SAT 99
--- NOTE | 2023-08-20 15:33 | ED.WOUNDLAC ---
HPI - Wound/Laceration General Chief Complaint: Wound/Laceration Stated Complaint: L finger(s) laceration (Table Saw) Time Seen by Provider: 08/20/23 15:17 History of Present Illness HPI narrative: 33 years old white male came to the ED by private car complaining of left hand table saw injury prior to arrival affecting the 3rd and 4th fingers. Unknown last tetanus shot, allergic to penicillin, denies other injuries Related Data Home Medications Medication Instructions Recorded Confirmed atenolol 100 mg tablet 100 mg PO DAILY 03/27/20 08/20/23 potassium 99 mg tablet See Rx Instructions .Route .COMPLEX 03/27/20 08/20/23 famotidine 40 mg tablet 40 mg PO DAILY 01/13/21 08/20/23 montelukast 10 mg tablet 10 mg PO DAILY 01/13/21 08/20/23 cetirizine 10 mg tablet (Zyrtec) 10 mg PO DAILY 08/20/23 08/20/23 Allergies Allergy/AdvReac Type Severity Reaction Status Date / Time Penicillins Allergy Unknown Vomiting Verified 08/20/23 15:27 Review of Systems Review of Systems: All systems reviewed & are unremarkable except as noted in HPI and below PMFSH Past Medical History Medical History Alcohol abuse Gastroesophageal reflux disease Hemochromatosis Typically has therapeutic phlebotomy twice a year. Hypertension Surgical History Surgical History History of tonsillectomy Family History Family History Grandparent Pancreatic cancer Social History Social History Social History: Surrogate decision maker: Dylon and Pranav Newton, parents. Code status: Full code. Smoking packs per day: 0.5 Smoking cigarettes per day: 10.0 Smoking status: Current every day smoker Tobacco type: cigarettes Alcohol intake: current Alcohol use details: One pint of whiskey a day for the past 7 years Substance use: unknown Additional living arrangements comments: The patient lives in [place] with his parents. Additional occupation/education comments: Currently unemployed, previously worked in [email or web address]. Exam Narrative: General appearance: Well-developed, well-nourished Skin: Normal color Head: Normocephalic, nontraumaticLeft 3rd finger examination showed crush injury dorsally, skin wrinkled with possible bone and tendon involvement Neck: Supple, nontender Vascular: Normal peripheral pulses, normal capillary refill. 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, no gross motor deficit Course Consultations Consultation #1: DR QUINTERO, HAND SURGEON Date: 08/20/23 Time: 15:58 Consultation #2: DR PENN, ED PHYSICIAN AT [facility] Date: 08/20/23 Time: 15:58 Vital Signs Vital signs: Vital Signs Temperature 36.6 C 08/20/23 15:19 Pulse Rate 86 08/20/23 15:19 Respiratory Rate 20 08/20/23 15:19 Blood Pressure 89/51 L 08/20/23 15:19 Pulse Oximetry 99 08/20/23 15:19 Oxygen Delivery Room Air 08/20/23 15:19 Temperature 36.6 C 08/20/23 15:19 Pulse Rate 86 08/20/23 15:19 Respiratory Rate 20 08/20/23 15:19 Blood Pressure 89/51 L 08/20/23 15:19 Pulse Oximetry 99 08/20/23 15:19 Oxygen Delivery Room Air 08/20/23 15:19 MDM - Wound/Laceration MDM Narrative Medical decision making narrative: PATIENT CAME WITH LEFT HAND TABLE SAW INJURY, X-RAY SHOWED COMMINUTED FRACTURE OF THE 2ND PHALANX OF THE MIDDLE FINGER, THE ED PATIENT RECEIVED A TETANUS SHOT, CLINDAMYCIN, MORPHINE AND ZOFRAN IV, PATIENT TO BE TRANSFERR
[2023-08-20] MEDS: TETANUS,DIPHTHERIA,AC PERTUSSIS ADULT 0.5 ML (ADACEL) IM (15:41)
[2023-08-20] MEDS: MORPHINE SULFATE (*CRX) 4 MG/ML INJ IV PUSH (15:43)
[2023-08-20] MEDS: CLINDAMYCIN 600 MG/D5W 50 ML 600 MG/50 ML PIGGYBACK 100 MG IVPB (15:43)
[2023-08-20] MEDS: ONDANSETRON INJ 4 MG/2 ML VIAL IV PUSH (15:43)
[2023-08-20 15:59] VITALS: BP 109/59; PULSE 77; RESP 18; O2SAT 99
== END 2023-08-20 16:18 | disposition short-term general hospital (02) ==
PROVIDERS: Emergency Provider Emergency Medicine; PCP Physician Assistant
DX: S62.633B Displaced fracture of distal phalanx of left middle finger, initial encounter for open fracture (principal); W31.2XXA Contact with powered woodworking and forming machines, initial encounter; I10 Essential (primary) hypertension; K21.9 Gastro-esophageal reflux disease without esophagitis; F17.210 Nicotine dependence, cigarettes, uncomplicated; Z23 Encounter for immunization
CPT/HCPCS: 73130; 90471; 90715; 96365; 96375; 99285; J2270; J2405